=== PATIENT | female | born 1940 | race Caucasian/White ===

== ENCOUNTER 2016-05-13 05:52 | Inpatient (IN) | payer MEDICARE, OTHER ==
[2016-05-13] MEDS ORDERED: ceFAZolin SODIUM 1 GM VIAL IV PRN (06:00)
[2016-05-13] MEDS: RINGERS SOLUTION,LACTATED 1,000 ML IV PRN ×2 (06:15→10:15)
[2016-05-13] MEDS ORDERED: RINGERS SOLUTION,LACTATED 1,000 ML IV ONE ×2 (07:45→08:41)
[2016-05-13] MEDS: ROPIVACAINE HCL/PF 100 MG, EPINEPHrine 0.2 MG, KETOROLAC TROMETHAMINE 30 MG in NORMAL S... IJ PRN ×2 (08:41→09:18)
[2016-05-13] MEDS: TRANEXAMIC ACID 1,000 MG in NORMAL SALINE 100 ML IV PRN ×2 (08:41→09:18)
[2016-05-13] MEDS ORDERED: HYDROmorphone HCL 1 MG/ML DISP.SYRIN IV PRN (09:48)
[2016-05-13] MEDS ORDERED: MAG HYDROX/ALUMINUM HYD/SIMETH 30 ML UDC PO PRN (09:48)
[2016-05-13] MEDS ORDERED: ZOLPIDEM TARTRATE 5 MG TABLET PO PRN (09:48)
[2016-05-13] MEDS ORDERED: diphenhydrAMINE HCL 50 MG/ML VIAL IV PRN (09:48)
[2016-05-13] MEDS ORDERED: MAGNESIUM HYDROXIDE 30 ML UDC PO PRN (09:48)
[2016-05-13] MEDS ORDERED: ESTROGENS, CONJUGATED 30 APPL TUBE VG PRN (09:50)
--- NOTE | 2016-05-13 09:53 | OR ---
Operative Report - Dictated Report Narrative: Date: 05/13/2016 Preoperative diagnosis: Right hip degenerative joint disease. Postoperative diagnosis: Right hip degenerative joint disease. Procedure: Right Total hip arthroplasty. Surgeon: Fernando Baires M.D. Byproducts Pump Operator: Patel Serrano PA-C Anesthesia: Spinal and local periarticular joint injection. Complications: None Specimens: Bone for disposal. Estimated blood loss: 150 milliliters. Retained implants: Depuy [place] size 4 femoral stem standard offset. Size 52 millimeter ouside diameter 3-hole [place] Gription acetabular cup. 52 millimeter outside by 36 millimeter inside diameter highly cross-linked acetabular liner. 36 millimeter diameter -2 millimeter cobalt chromium femoral head. Cancellous 6.5mm screw 25 and 30 millimeter length Indications: Mrs. Appiah is a 75-year-old female who has had long-standing right hip pain. This patient was followed in my clinic for period of time with significant complaints of right hip pain consistent with arthritic changes. She failed conservative measures including but not limited to activity modification, passage of time, medications, and other conservative measures. Patient wished to proceed with surgical treatment. The risks, benefits, and alternatives were discussed in clinic. The risks of , blood clots, bleeding, infection, nerve/tendon blood vessel/ injury, malposition of components, dislocation and/or instability of joint, intraoperative fracture, postoperative limited range of motion, persistent pain, failure of components, and need for additional procedures. Patient wished to proceed. Consent was obtained after answering all questions. Procedure: After marking the correct extremity on the floor, the patient was taken to the operating room. A timeout was performed. IV antibiotics consisting of Ancef were administered prior to the procedure. A spinal anesthetic was induced by anesthesia. A Castaneda catheter was inserted. The patient was then transitioned to a lateral position on a well-padded pegboard. An axillary roll was placed. The head was in neutral position. The non- operative down leg was well-padded with SCD and DARSHAN hose in place. The arms were supported and padded to protect from any undue pressure on the bony prominences and nerves. A well-padded anterior and posterior pelvic and chest posts were secured in order to maintain a stable position of the pelvis. This was placed so that the pelvis was perpendicular to the floor. The body was in line with the pelvis. Once it was felt that we had protected all the bony prominences and the patient was well secured with a safety belt as well, the leg was pre-scrubbed with alcohol, prepped and draped in a standard sterile fashion. A standard anterior lateral hip incision was marked out over the greater trochanter. [place]an drapes were then placed. The skin incision was then made. Sharp dissection with a scalpel utilizing cautery for hemostasis was carried out down to the gluteus and iliotibial band fascia. This was split in line with the skin incision. The greater trochanter bursa was excised. The anterior and posterior margins of the abductor tendon were identified. The anterior 1/2-1/3 of the tendon was tagged and reflected off the greater trochanter leaving a sleeve of tendon for repair at the completion of the case. This exposed the underlying hip joint capsule. A limb length stitch was placed in the skin and referencedd off a claudy on the greater trochanter for evaluation of intraoperative limb lengths. An inverted T-type capsulotomy was made extending this up to the brim of the acetabulum. Using Homans to assist with elevation of the soft tissues off the anterior, superior, and inferior aspects of the femoral neck, the hip was then placed in a figure 4 position and the femoral head was dislocated. With the leg in an externally rotated and adducted position, the cutting flag was utilized in order to claudy for a standard femoral neck cut approximately a fingerbreadth above the level of the lesser trochanter. This was done with reference to pre-operative films and overall alignment. This was done while protecting the surrounding soft tissues with Homans. The femoral head was then removed and sized for guidance on preparation of the acetabulum. It was noted that there was loss of articular cartilage on both the femoral head and weightbearing portions of the acetabulum. We then returned the leg to the table and turned our attention to the acetabulum. While protecting the surrounding soft tissues, the labrum and remaining tissue in the fovea were excised using a scalpel and cautery. A series of reamers up to size 51 millimeter were utilized to prepare the acetabulum. The final reamer had good purchase and exposed the bleeding subchondral bone. The acetabulum was then thoroughly irrigated ensuring that all bony and cartilaginous materials were removed, and the final acetabular shell was impacted into place. This was placed in approximately 45 degrees of abduction and 20 degrees of anteversion utilizing the outrigger and body axis for alignment. This had a good press fit. 2 6.5mm cancellous screws were placed in the superior posterior quadrant of the acetabulum. The shell was then thoroughly irrigated and the final polyethylene was impacted into place ensuring that it seated completely. This was then protected with a sponge while we returned our attention to the femur. With the leg in a figure 4 position, utilizing Homans for soft tissue protection , a box cutting osteotome, followed by Charnley awl, followed by serial reamers and broaches were utilized in order to prepare the femur. It was found that a size 4 broach gave good axial and rotational stability. The proximal femur was visualized to ensure that there were no signs of fracture. A series of heads and necks were trialed. It was found that a standard neck and a -2mm femoral head gave good overall stability. There was minimal longitudinal instability. With the leg in the position of sleep, the femoral head was well covered. Hip range of motion was able to reach full extension and external rotation to greater than 75 degrees prior to impingement along the posterior acetabulum. The hip was able to be flexed to greater than 90 degrees with internal rotation greater than 60 degrees prior to anterior impingement. The limb lengths were near equal based on comparison to the contralateral side and the prior placed limb length stitch. At this point it was felt these were the appropriately sized femoral components as well as neck and femoral head. The trial implants were removed. The femur was thoroughly irrigated. The final implants were impacted into place, and the hip was reduced. After ensuring that there was no damage to the proximal femur , the standard periarticular joint injection of ropivacaine, Toradol, and epinephrine were injected into the joint capsule and surrounding soft tissues. Anesthesia then administered intravenous tranexamic acid. The capsule was repaired with a single interrupted #1 Vicryl. The abductor tendon was repaired to the greater trochanter utilizing #5 Ethibond through drill holes. This was oversewn with #1 Vicryl. The fascia was closed with interrupted #1 Vicryl. The wounds were thoroughly irrigated as we closed in layers. The deep and subcutaneous fat layers were closed with 0 and 3-0 Vicryl respectively. The subcutaneous tissue was closed with a running 3-0 Vicryl and the skin with geoffrey. All sponge, needle, blade, and instrument counts were correct prior to closing the wounds. Sterile dressings consisting of Xeroform, 4 x 4's, ABD, and tape were applied. The patient was awoken and transferred to her hospital bed and then to the postanesthesia care unit in stable condition. Postoperative condition: The plan is to admit to the medical/surgical inpatient floor postoperatively. There will be a projected 2 to 4 day hospital stay. Postoperatively 24 hours of IV antibiotics, pain control, physical therapy, occupational therapy, and medical comanagement will be utilized. Patient will be weightbearing as tolerated with anterior hip precautions. Postoperative films will be obtained in the recovery room.
[2016-05-13] MEDS: DEXTROSE 5%-LACTATED RINGERS 1,000 ML IV PRN ×2 (10:43→18:40)
[2016-05-13] MEDS: KETOROLAC TROMETHAMINE 15 MG/ML VIAL IV SCH ×3 (10:45→23:41)
[2016-05-13] MEDS: ceFAZolin SODIUM 1 GM in DEXTROSE 5 % IN WATER 100 ML IV SCH ×6 (10:48→23:42)
[2016-05-13] MEDS: ONDANSETRON HCL/PF 2 MG/ML VIAL IV PRN (12:50)
[2016-05-13] MEDS: PROMETHAZINE HCL 5 MG in DEXTROSE 5 % IN WATER 50 ML IV PRN ×2 (14:00)
[2016-05-13] MEDS: oxyCODONE HCL/ACETAMINOPHEN 1 TAB TABLET PO PRN (14:01)
[2016-05-13] MEDS: MORPHINE SULFATE 15 MG TABLET.SA PO SCH (20:39)
[2016-05-13] MEDS: SENNOSIDES/DOCUSATE SODIUM 1 TAB TABLET PO SCH (20:39)
[2016-05-14] MEDS: DEXTROSE 5%-LACTATED RINGERS 1,000 ML IV PRN ×3 (03:11→20:40)
[2016-05-14] MEDS: oxyCODONE HCL/ACETAMINOPHEN 1 TAB TABLET PO PRN ×3 (03:13→16:33)
[2016-05-14] MEDS: KETOROLAC TROMETHAMINE 15 MG/ML VIAL IV SCH ×4 (04:36→23:13)
[2016-05-14 06:11] LABS: Hematocrit 30.9 % (37.0-47.0); Hemoglobin 10.2 gm/dL (12.5-16.0); Mean Cell Volume 91.7 fl (78-100); Mean Corpuscular Hemoglobin 30.3 pg (27-31); Mean Platelet Volume 10.8 fl (6.0-9.5); Platelet Count 177 K/mm3 (150-450); Red Blood Count 3.37 M/mm3 (4.2-5.4); Red Cell Distribution Width 12.8 % (11.5-14.0); White Blood Count 9.6 K/mm3 (4.0-10.5)
[2016-05-14 06:22] LABS: Anion Gap 10.7 mmol/L (6.8-13.8); BUN/Creatinine Ratio 14.8 (9.0-21.6); Calcium * 8.1 mg/dL (7.9-10.9); Potassium 3.7 mmol/L (3.4-4.6)
[2016-05-14] MEDS: LEVOTHYROXINE SODIUM 50 MCG TABLET PO SCH (06:28)
--- NOTE | 2016-05-14 06:50 | PN ---
Subjective - Date and Time Seen Date: 05/14/16 Time: 06:43 Subjective Narrative: Denies any significant pain. Denies CP/SOB/N/V this am, but did have some N/V last pm. She's been up once with no complaint of light headedness. Castnaeda was removed just now. Objective - Review of Systems Generalized/Overall Review: Reports: No Symptoms Reported EENTM: Reports: No Symptoms Reported Respiratory: Reports: No Symptoms Reported Cardiac: Reports: No Symptoms Reported Abdominal: Reports: No Symptoms Reported Genitourinary Symptoms: Reports: No Symptoms Reported Musculoskeletal Complaints: Reports: Joint Pain Neurological: Reports: No Symptoms Reported Skin: Reports: No Symptoms Reported Endocrine: Reports: No Symptoms Reported - Vitals Vitals: Last Vital Signs Temp 36.8 C 05/14/16 05:54 Pulse 80 05/14/16 05:54 Resp 18 05/14/16 05:54 BP 115/56 05/14/16 05:54 Pulse Ox 99 05/14/16 05:54 - Abnormal Lab Findings Abnormal Lab Findings: Abnormal Lab Results 05/14/16 05/14/16 Range/Units 06:00 06:00 RBC 3.37 L (4.2-5.4) M/mm3 Hgb 10.2 L (12.5-16.0) gm/dL Hct 30.9 L (37.0-47.0) % MPV 10.8 H (6.0-9.5) fl Random Glucose 136 H (70-110) mg/dL - Exam Constitutional: Present: Alert, Oriented x3, Cooperative, No distress ENT Exam: Present: hearing grossly normal Neck: Present: supple Respiratory: Present: lungs clear, normal breath sounds, no respiratory distress , no accessory muscle use Cardiovascular/Chest: Present: regular rate, rhythm, no murmur Abdomen: Present: Normal bowel sounds, soft, nontender, nondistended, no rebound tenderness, no hepatospenomegaly Extremity: Present: no calf tenderness Skin Exam: Present: normal color Neurologic: Present: normal mood/affect, oriented x 3 Appearance: Present: appropriate appearance, appropriate insight, neat Eye contact: Present: cooperative, good eye contact, normal speech Thoughts: Present: normal thought pattern, no apparent hallucination Cauti Physician Documentation - Urinary Catheter Management Urethral (Castaneda) Urethral Indwelling: No Date of Insertion: 05/13/16 Time of Insertion: 08:00 Assessment/Plan - Problems/Diagnosis (1) Anemia Problem: Acute Qualifiers: Anemia type: other cause Other causes of anemia: other cause, not classified Qualified Code(s): D64.89 - Other specified anemias Narrative: Mild anemia - Hb 10 this am, 13 pre-op. No sx so will just follow for now. (2) Elevated BP without diagnosis of hypertension Problem: Acute Narrative: pre-op BP's were elevated, but have been fine here. will continue to monitor. (3) Insomnia Problem: Acute Qualifiers: Insomnia type: primary Qualified Code(s): F51.01 - Primary insomnia Narrative: continue zolpidem. doing well (4) Hypothyroid Problem: Acute Qualifiers: Hypothyroidism type: acquired Qualified Code(s): E03.9 - Hypothyroidism, unspecified Narrative: no med changes at this time. (5) Discharge planning issues Problem: Acute Narrative: pt. doing well. anticipate being able to discharge home when inpatient goals achieved per ortho.
--- NOTE | 2016-05-14 08:16 | PN ---
Subjective - Date and Time Seen Date: 05/14/16 Time: 08:13 Subjective Narrative: Subjective: Reports nausea. Was able to to the chair with therapy. Pain is well-controlled. Voiding without any complications. Tolerating by mouth intake. Denies vomiting. Denies calf pain. Slept well. Physical exam: Alert and oriented to person, place and time Right lower Extremity: Palpable dorsalis pedis pulse. Sensation grossly intact to light touch. Dressings trial. Able to flex and extend ankle and toes. No excessive drainage. Calf and thigh are soft and nontender. Assessment: Postop day 1 status post right total hip arthroplasty. Plan: Continue with physical and occupational therapy weightbearing as tolerated. Continue with anticoagulation. 24 hours postoperative prophylactic antibiotics. Pain control with goal to rely on oral medications. Continue bowel regimen. Will need 6 weeks with walker or assitive device to protect joint while ambulating during the recovery process. Discharge planning. Discontinue drain and Castaneda catheter. Repeat labs in a.m. if she continues of nausea with her pain medicines will likely alter her pain medicine but at this time we will wait and see if this is related to her surgical anesthesia. She was informed that there is no if she continues to have nausea Objective - Vitals Vitals: Last Vital Signs Temp 36.8 C 05/14/16 06:56 Pulse 80 05/14/16 06:56 Resp 18 05/14/16 06:56 BP 115/56 05/14/16 06:56 Pulse Ox 99 05/14/16 06:56 - Abnormal Lab Findings Abnormal Lab Findings: Abnormal Lab Results 05/14/16 05/14/16 Range/Units 06:00 06:00 RBC 3.37 L (4.2-5.4) M/mm3 Hgb 10.2 L (12.5-16.0) gm/dL Hct 30.9 L (37.0-47.0) % MPV 10.8 H (6.0-9.5) fl Random Glucose 136 H (70-110) mg/dL Cauti Physician Documentation - Urinary Catheter Management Urethral (Castaneda) Urethral Indwelling: No Date of Insertion: 05/13/16 Time of Insertion: 08:00 Assessment/Plan - Problems/Diagnosis (1) Acute blood loss anemia Problem: Acute (2) Elevated BP without diagnosis of hypertension Problem: Chronic (3) Hypothyroid Problem: Chronic Qualifiers: Hypothyroidism type: acquired Qualified Code(s): E03.9 - Hypothyroidism, unspecified (4) Insomnia Problem: Acute Qualifiers: Insomnia type: primary Qualified Code(s): F51.01 - Primary insomnia (5) Status post total hip replacement, right Problem: Acute
[2016-05-14] MEDS: CALCIUM CARBONATE/VITAMIN D3 1 TAB TABLET PO SCH (08:35)
[2016-05-14] MEDS: MORPHINE SULFATE 15 MG TABLET.SA PO SCH ×2 (08:35→20:38)
[2016-05-14] MEDS: ENOXAPARIN SODIUM 40 MG/0.4 ML SYRG SC SCH (08:35)
[2016-05-14] MEDS: MULTIVITAMINS 1 CAP CAPSULE PO SCH (08:35)
[2016-05-14] MEDS: ONDANSETRON HCL/PF 2 MG/ML VIAL IV PRN (08:36)
[2016-05-14] MEDS: PROMETHAZINE HCL 5 MG in DEXTROSE 5 % IN WATER 50 ML IV PRN ×2 (11:20)
[2016-05-14] MEDS: SENNOSIDES/DOCUSATE SODIUM 1 TAB TABLET PO SCH (20:38)
[2016-05-15] MEDS: DEXTROSE 5%-LACTATED RINGERS 1,000 ML IV PRN (04:37)
[2016-05-15] MEDS: KETOROLAC TROMETHAMINE 15 MG/ML VIAL IV SCH (04:38)
[2016-05-15 06:32] LABS: Hematocrit 29.5 % (37.0-47.0); Hemoglobin 9.8 gm/dL (12.5-16.0); Mean Cell Volume 91.9 fl (78-100); Mean Corpuscular Hemoglobin 30.5 pg (27-31); Mean Corpuscular Hgb Conc 33.2 g/dl (32-36); Mean Platelet Volume 11.3 fl (6.0-9.5); Platelet Count 171 K/mm3 (150-450); Red Blood Count 3.21 M/mm3 (4.2-5.4); Red Cell Distribution Width 12.7 % (11.5-14.0); White Blood Count 8.8 K/mm3 (4.0-10.5)
[2016-05-15] MEDS: LEVOTHYROXINE SODIUM 50 MCG TABLET PO SCH (06:34)
[2016-05-15 06:43] LABS: Anion Gap 7.3 mmol/L (6.8-13.8); BUN/Creatinine Ratio 14.6 (9.0-21.6); Calcium * 8.4 mg/dL (7.9-10.9); Carbon Dioxide 30.1 mmol/L (24-32.6); Estimated Creat Clear 76.5; Potassium 3.4 mmol/L (3.4-4.6)
--- NOTE | 2016-05-15 08:08 | PN ---
Subjective - Date and Time Seen Date: 05/15/16 Time: 08:04 Subjective Narrative: Denies any significant pain. Denies CP/SOB this am, but did have some N/V last pm and again this am. She's been up once with no complaint of light headedness. She does state her bowels are as regular as they usually are at home. Objective - Review of Systems Generalized/Overall Review: Reports: No Symptoms Reported EENTM: Reports: No Symptoms Reported Respiratory: Reports: No Symptoms Reported Cardiac: Reports: No Symptoms Reported Abdominal: Reports: No Symptoms Reported Genitourinary Symptoms: Reports: No Symptoms Reported Musculoskeletal Complaints: Reports: No Symptoms Reported Neurological: Reports: No Symptoms Reported Skin: Reports: No Symptoms Reported Endocrine: Reports: No Symptoms Reported - Vitals Vitals: Last Vital Signs Temp 35.6 C L 05/15/16 07:54 Pulse 72 05/15/16 07:35 Resp 18 05/15/16 07:35 BP 124/69 05/15/16 07:35 Pulse Ox 94 05/15/16 07:35 - Abnormal Lab Findings Abnormal Lab Findings: Abnormal Lab Results 05/15/16 05/15/16 Range/Units 06:04 06:04 RBC 3.21 L (4.2-5.4) M/mm3 Hgb 9.8 L (12.5-16.0) gm/dL Hct 29.5 L (37.0-47.0) % MPV 11.3 H (6.0-9.5) fl Est GFR (Non-Af Amer) 134 H (60-130) mL/min - Exam Constitutional: Present: Alert, Oriented x3, Cooperative, Mild distress ENT Exam: Present: hearing grossly normal Neck: Present: supple Respiratory: Present: lungs clear, normal breath sounds, no respiratory distress , no accessory muscle use Cardiovascular/Chest: Present: regular rate, rhythm, no murmur Abdomen: Present: Normal bowel sounds, soft, nontender, no rebound tenderness, no hepatospenomegaly Extremity: Present: no calf tenderness Skin Exam: Present: normal color Neurologic: Present: normal mood/affect, oriented x 3 Appearance: Present: appropriate appearance, appropriate insight, neat Eye contact: Present: cooperative, good eye contact, normal speech Thoughts: Present: normal thought pattern, no apparent hallucination Cauti Physician Documentation - Urinary Catheter Management Urethral (Castaneda) Urethral Indwelling: No Date of Insertion: 05/13/16 Time of Insertion: 08:00 Assessment/Plan - Problems/Diagnosis (1) Anemia Problem: Acute Qualifiers: Anemia type: other cause Other causes of anemia: other cause, not classified Qualified Code(s): D64.89 - Other specified anemias Narrative: Stable, 9.8 this am. no changes. (2) Elevated BP without diagnosis of hypertension Problem: Chronic (3) Insomnia Problem: Acute Qualifiers: Insomnia type: primary Qualified Code(s): F51.01 - Primary insomnia Narrative: no complaints. (4) Hypothyroid Problem: Chronic Qualifiers: Hypothyroidism type: acquired Qualified Code(s): E03.9 - Hypothyroidism, unspecified Narrative: stable no med changes. (5) Discharge planning issues Problem: Acute Narrative: Pt. is ready for discharge when inpatient goals are met. (6) Nausea Problem: Acute Narrative: probably due to pain meds. advised pt. to limit use and see how her pain does and her nausea. consider kenn.
[2016-05-15] MEDS: CALCIUM CARBONATE/VITAMIN D3 1 TAB TABLET PO SCH (08:39)
[2016-05-15] MEDS: MULTIVITAMINS 1 CAP CAPSULE PO SCH (08:39)
[2016-05-15] MEDS: MORPHINE SULFATE 15 MG TABLET.SA PO SCH ×2 (08:39→20:20)
[2016-05-15] MEDS: ENOXAPARIN SODIUM 40 MG/0.4 ML SYRG SC SCH (08:39)
--- NOTE | 2016-05-15 12:20 | PN ---
Subjective - Date and Time Seen Date: 05/15/16 Time: 12:18 Subjective Narrative: Subjective: Reports nausea continues but does not seem to be episodic with her pain meds. Was able to ambulate stairs with therapy. Pain is well-controlled however she noted increased pain with therapy today. Voiding without any complications. Tolerating by mouth intake. Denies calf pain. Slept well. Physical exam: Alert and oriented to person, place and time Right lower Extremity: Palpable dorsalis pedis pulse. Sensation grossly intact to light touch. Dressings trial. Able to flex and extend ankle and toes. No excessive drainage. Calf and thigh are soft and nontender. Assessment: Postop day 2 status post right total hip arthroplasty. Plan: Continue with physical and occupational therapy weightbearing as tolerated. Continue with anticoagulation. We again discussed that if she continues to have nausea she should have the nurse call to discuss changing pain medicines. It was noted that she had nausea yesterday and no call was made to ortho. Pain control with goal to rely on oral medications. Continue bowel regimen. Will need 6 weeks with walker or assitive device to protect joint while ambulating during the recovery process. Discharge planning. Objective - Vitals Vitals: Last Vital Signs Temp 35.6 C L 05/15/16 07:54 Pulse 72 05/15/16 07:35 Resp 18 05/15/16 07:35 BP 124/69 05/15/16 07:35 Pulse Ox 94 05/15/16 07:35 - Abnormal Lab Findings Abnormal Lab Findings: Abnormal Lab Results 05/15/16 05/15/16 Range/Units 06:04 06:04 RBC 3.21 L (4.2-5.4) M/mm3 Hgb 9.8 L (12.5-16.0) gm/dL Hct 29.5 L (37.0-47.0) % MPV 11.3 H (6.0-9.5) fl Est GFR (Non-Af Amer) 134 H (60-130) mL/min Cauti Physician Documentation - Urinary Catheter Management Urethral (Castaneda) Urethral Indwelling: No Date of Insertion: 05/13/16 Time of Insertion: 08:00 Assessment/Plan - Problems/Diagnosis (1) Acute blood loss anemia Problem: Acute (2) Elevated BP without diagnosis of hypertension Problem: Chronic (3) Hypothyroid Problem: Chronic Qualifiers: Hypothyroidism type: acquired Qualified Code(s): E03.9 - Hypothyroidism, unspecified (4) Insomnia Problem: Acute Qualifiers: Insomnia type: primary Qualified Code(s): F51.01 - Primary insomnia (5) Status post total hip replacement, right Problem: Acute
[2016-05-15] MEDS: ACETAMINOPHEN 500 MG TABLET PO PRN (14:04)
[2016-05-15] MEDS: SENNOSIDES/DOCUSATE SODIUM 1 TAB TABLET PO SCH (20:20)
[2016-05-16] MEDS: ACETAMINOPHEN 500 MG TABLET PO PRN (03:18)
[2016-05-16 06:34] VITALS: BP 136/61
[2016-05-16] MEDS: LEVOTHYROXINE SODIUM 50 MCG TABLET PO SCH (07:29)
--- NOTE | 2016-05-16 08:17 | DS ---
(1) Acute blood loss anemia Problem: Acute (2) Elevated BP without diagnosis of hypertension Problem: Chronic (3) Hypothyroid Problem: Chronic Qualifiers: Hypothyroidism type: acquired Qualified Code(s): E03.9 - Hypothyroidism, unspecified (4) Insomnia Problem: Acute Qualifiers: Insomnia type: primary Qualified Code(s): F51.01 - Primary insomnia (5) Status post total hip replacement, right Problem: Acute Description of Stay: Mrs. Appiah was admitted to the floor after undergoing right total hip arthroplasty. Tolerated this well. Was admitted to the floor postoperatively for 24 hours of IV antibiotics, pain control, medical comanagement, and occupational and physical therapy. OT and PT were consulted to assist with activities of daily living and ambulation. Was made weightbearing as tolerated with anterior hip precautions. Pain was initially controlled with IV regimen. This was transitioned to oral once tolerating a by mouth intake. She did have some nausea which improved prior to discharge with decreasing her narcotics. Was resumed on home diet and medications. Had a Castaneda catheter inserted and the operating room which was discontinued on postoperative day 1. Lovenox SCD and DARSHAN hose were utilized for DVT prophylaxis. Vital signs remained stable to the hospital course. Serial labs were obtained which showed a final hemoglobin of 9.8 grams. BMP was reviewed and was stable. Physical examination throughout the hospital course showed an extremity that had sensation that was intact to light touch, palpable pulses, a benign wound, motor intact to the toes, ankle, and knee. Once an oral pain regimen was tolerated and physical therapy goals were met, it was felt that they were stable for discharge to home. Instructions: Continue with weightbearing as tolerated and anterior hip precautions. Keep the wound clean and dry. Cover with dry gauze and tape. Change every 2-3 days as needed. Cover wound while showering. Continue with physical therapy. Resume home diet. Report any fever over 101.5 Fahrenheit, uncontrolled pain, increased drainage, foul odor of drainage, new or increased calf pain or shortness of breath, or any other significant complaints. A 325mg dialy aspirin will be started after finishing anticoagulation if not allergic. Continue with DARSHAN hose on the operative extremity until instructed otherwise. No driving until instructed otherwise. Follow up in approximately 10-14 days. Procedures Performed: see notes below List Procedures: Right total hip arthroplasty Discharge Disposition: Home self care Disposition: Home self-care Condition: Good Discharge Activity: Weight bearing, Other - anterior hip precautions Discharge Diet: General/regular food Alf Therapy: Physicial Therapy Referrals: John Max MD [Primary Care Provider] - Additional Patient Instructions (free text): Follow-up in the office with Dr. Baires on 05-28-16@10:45pm. Prescriptions (Any new or edited meds): Enoxaparin Sodium [Lovenox] 40 mg SC Q24H #7 disp.syrin Morphine Sulfate [Ms Contin] 15 mg PO Q12H #14 tablet.sa oxyCODONE HCL/ACETAMINOPHEN [Percocet 5 MG/325 MG] 2 tab PO Q4H PRN #60 tablet PRN Reason: Moderate Pain Complete Home Medications List: Complete Home Medication List: Calcium Carbonate/Vitamin D3 [Calcium 600-Vit D3 200 Tablet] 1 each PO DAILY 02/28 Estrogens, Conjugated [Premarin] 0.5 gm VG 2XW PRN 04/24/16 Levothyroxine Sodium [Synthroid] 50 mcg PO DAILY 04/24/16 Multivitamins [Multivitamin Carmine] 1 cap PO DAILY 04/24/16 Acetaminophen [Tylenol] 1,000 mg PO Q6H PRN #0 tablet 05/16/16 Enoxaparin Sodium [Lovenox] 40 mg SC Q24H #7 disp.syrin 05/16/16 Morphine Sulfate [Ms Contin] 15 mg PO Q12H #14 tablet.sa 05/16/16 Sennosides/Docusate Sodium [Senokot-S] 2 tab PO HS tablet 05/16/16 oxyCODONE HCL/ACETAMINOPHEN [Percocet 5 MG/325 MG] 2 tab PO Q4H PRN #60 tablet 05/16/16
[2016-05-16] MEDS: ENOXAPARIN SODIUM 40 MG/0.4 ML SYRG SC SCH (08:44)
[2016-05-16] MEDS: MORPHINE SULFATE 15 MG TABLET.SA PO SCH (08:48)
[2016-05-16] MEDS: CALCIUM CARBONATE/VITAMIN D3 1 TAB TABLET PO SCH (08:48)
[2016-05-16] MEDS: MULTIVITAMINS 1 CAP CAPSULE PO SCH (08:48)
== END 2016-05-16 12:45 | disposition home or self-care (01) | DRG 470 ==
LOC: MS 05:52
PROVIDERS: ADMIT Orthopaedic Surgery; ATTEND Orthopaedic Surgery
PROC: 0SR90JZ Replacement of Right Hip Joint with Synthetic Substitute, Open Approach (ICD-10-PCS; principal; 2016-05-13 08:00)
DX: M16.11 Unilateral primary osteoarthritis, right hip (principal); D62 Acute posthemorrhagic anemia; E03.9 Hypothyroidism, unspecified; F51.01 Primary insomnia; R03.0 Elevated blood-pressure reading, without diagnosis of hypertension

== ENCOUNTER 2018-04-20 10:20 | Inpatient (IN) | payer MEDICARE, OTHER ==
--- NOTE | 2018-04-08 09:26 | ANES ---
Anesthesia Pre Procedure Eval HOME MEDICATIONS Estrogens, Conjugated [Premarin] 0.5 gm VAGINAL 2XW PRN 04/24/16 [Last Taken Unknown] Multivitamins [Multivitamin Carmine] 1 cap PO DAILY 04/24/16 [Last Taken 05/12/16] Acetaminophen [Tylenol] 1,000 mg PO Q6H PRN #0 tab 05/16/16 [Last Taken Unknown] levothyroxine 75 mcg tablet 75 mcg PO DAILY #30 tab 12/31/17 [Last Taken Unknown] clobetasol 0.05 % topical cream 1 applic TP BID 02/23/18 [Last Taken Unknown] Allergies/Adverse Reactions: Allergies Allergy/AdvReac Type Severity Reaction Status Date / Time No Known Allergies Allergy Verified 04/08/18 07:53 - Planned Procedure Planned Procedure: Left Total Hip Arthroplasty Medication List Reviewed:: Yes Allergies Verified: Yes Medical History (Last Reviewed 04/08/18 @ 09:24 by Mj Guerin CRNA) Atrophic vaginitis Onset Date: 11/26/12 atrophic vaginitis- 02/24/13 post-menopausal atrophic vaginitis 11/26/12 Degenerative joint disease (DJD) of hip Onset Date: Unknown Dizziness Onset Date: 12/08/12 orthostatic, due to poor sleep from vaginal discomfort. Fatigue Onset Date: 12/08/12 secondary to sleep and vaginal pain. Consider 2 aleve hs if labs wnl. Hyperlipidemia Onset Date: 12/08/12 Hypothyroidism Onset Date: 07/29/16 Insomnia Onset Date: 12/08/12 secondary to pain. Left hip pain Onset Date: ~2015 Lichen sclerosus Onset Date: 12/30/12 Osteoarthritis Onset Date: 12/08/12 Vulvar lesion Onset Date: 11/26/12 Surgical History (Last Reviewed 04/08/18 @ 09:24 by Mj Guerin CRNA) History of carpal tunnel release of both wrists Onset Date: ~1989 History of colonoscopy Onset Date: Unknown X2. Pt thinks she had one approx 2 yrs ago and was told she would not need another one for 10 yrs. Both colonoscopies were neg. History of foot surgery Onset Date: ~1989 -Mela Anderson History of tonsillectomy Onset Date: 1945 History of total hip arthroplasty Onset Date: 05/13/16 right-Dr. Baires History of tubal ligation Onset Date: ~1969 Family History (Last Reviewed 04/08/18 @ 07:53 by Jenni Leigh RN) Father , age 62 Cerebral hemorrhage Mother Alzheimers disease Cancer melanoma Brother , x3 No problems noted. - Family Anesthesia History Family History:: no untoward family reactions to anesthesia, no familial bleeding tendencies, no family history of clotting disorders, no family history of premature - Airway/Neck/Teeth Within Normal Limits:: Yes Denture Type: Partial lower Neck Exam: full range of motion Mallampatti Score: 2 Thyromental (T-M) distance: > 6 cm Mandibulo Hyoid distance: > 3 cm - Respiratory Respiratory Physical: lungs clear Smoking Status: Never smoker Sleep Apnea currently treated: No Sleep Apnea by current assessment: No - Cardiovascular Tolerate Activity: Fair Heart Sounds: S1 & S2 - Anesthesia Assessment and Plan ASA Class: PS, II Anesthesia Type Plan: Spinal Planned difficult intubation/equipment available: No
[~2018-04-20 10:20] MED LIST: MORPHINE SULFATE 15 MG TABLET.SA PO PRN; ROPIVACAINE HCL/PF 100 MG, EPINEPHrine 0.2 MG, KETOROLAC TROMETHAMINE 30 MG in NORMAL S... IJ PRN; TRANEXAMIC ACID 1,000 MG in NORMAL SALINE 100 ML IV PRN; ceFAZolin SODIUM 1 GM VIAL IV PRN
[2018-04-20] MEDS: RINGER'S SOLUTION,LACTATED 1,000 ML IV PRN ×2 (10:59→13:16)
[2018-04-20] MEDS ORDERED: MAGNESIUM HYDROXIDE 30 ML UDC PO PRN (14:20)
[2018-04-20] MEDS ORDERED: diphenhydrAMINE HCL 50 MG/ML VIAL IV PRN (14:20)
[2018-04-20] MEDS ORDERED: MORPHINE SULFATE 2 MG/ML DISP.SYRIN IV PRN (14:20)
[2018-04-20] MEDS ORDERED: ZOLPIDEM TARTRATE 5 MG TABLET PO PRN (14:20)
[2018-04-20] MEDS ORDERED: MAG HYDROX/ALUMINUM HYD/SIMETH 30 ML UDC PO PRN (14:20)
[2018-04-20] MEDS ORDERED: ACETAMINOPHEN 500 MG TABLET PO PRN (14:20)
--- NOTE | 2018-04-20 14:29 | OR ---
Operative Report - Dictated Report Narrative: Date: 04/20/2018 Preoperative diagnosis: Left hip degenerative joint disease. Postoperative diagnosis: Left hip degenerative joint disease. Procedure: Left Total hip arthroplasty. Surgeon: Fernando Baires M.D. Heavy Equipment Mechanic: Patel Serrano PA-C (provided an essential set of skilled, educated and assisted with transfer, positioning, prepping, draping, manipulation, traction, irrigation, suturing, and placement of dressings all of which cannot be performed by the available surgical crew) Anesthesia: Spinal and local periarticular joint injection. Complications: None Specimens: Bone for disposal. Estimated blood loss: 250 milliliters. Retained implants: Depuy [place] size 4 femoral stem standard offset. Size 52 millimeter outside diameter 3-hole Rico Gription acetabular cup. 52 millimeter outside by 36 millimeter inside diameter highly cross-linked acetabular liner. 36 millimeter diameter +1.5 millimeter cobalt chromium femoral head. Cancellous 6.5mm screw 25 millimeter length Indications: Mrs. Appiah is a 77-year-old female who has had long-standing left hip pain and arthrosis. This patient was followed in my clinic for period of time with significant complaints of left hip pain consistent with arthritic changes. She failed conservative measures including but not limited to activity modification, passage of time, medications, and other conservative measures. Patient wished to proceed with surgical treatment. The risks, benefits, and alt ernatives were discussed in clinic. The risks of , blood clots, bleeding, infection, nerve/tendon blood vessel/ injury, malposition of components, dislocation and/or instability of joint, intraoperative fracture, postoperative limited range of motion, persistent pain, failure of components, and need for additional procedures. Patient wished to proceed. Consent was obtained after answering all questions. Procedure: After marking the correct extremity on the floor, the patient was taken to the operating room. A timeout was performed. IV antibiotics consisting of Ancef were administered prior to the procedure. A spinal anesthetic was induced by anesthesia. A Castaneda catheter was inserted. The patient was then transitioned to a lateral position on a well-padded pegboard. An axillary roll was placed. The head was in neutral position. The non- operative down leg was well-padded with SCD and DARSHAN hose in place. The arms were supported and padded to protect from any undue pressure on the bony prominences and nerves. A well-padded anterior and posterior pelvic and chest posts were secured in order to maintain a stable position of the pelvis. This was placed so that the pelvis was perpendicular to the floor. The body was in line with the pelvis. Once it was felt that we had protected all the bony prominences and the patient was well secured with a safety belt as well, the leg was pre-scrubbed with alcohol, prepped and draped in a standard sterile fashion. A standard anterior lateral hip incision was marked out over the greater trochanter. Ioban drapes were then placed. The skin incision was then made. Sharp dissection with a scalpel utilizing cautery for hemostasis was carried out down to the gluteus and iliotibial band fascia. This was split in line with the skin incision. The greater trochanter bursa was excised. The anterior and posterior margins of the abductor tendon were identified. The anterior 1/2-1/3 of the tendon was tagged and reflected off the greater trochanter leaving a sleeve of tendon for repair at the completion of the case. This exposed the underlying hip joint capsule. A limb length stitch was placed in the skin and referencedd off a claudy on the greater trochanter for evaluation of intraoperative limb lengths. An inverted T-type capsulotomy was made extending this up to the brim of the acetabulum. Using Homans to assist with elevation of the soft tissues off the anterior, superior, and inferior aspects of the femoral neck, the hip was then placed in a figure 4 position and the femoral head was dislocated. With the leg in an externally rotated and adducted position, the cutting flag was utilized in order to claudy for a standard femoral neck cut approximately a fingerbreadth above the level of the lesser trochanter. This was done with reference to pre-operative films and overall alignment. This was done while protecting the surrounding soft tissues with Homans. The femoral head was then removed and sized for guidance on preparation of the acetabulum. It was noted that there was loss of articular cartilage on both the femoral head and weightbearing portions of the acetabulum. We then returned the leg to the table and turned our attention to the acetabulum. While protecting the surrounding soft tissues, the labrum and remaining tissue in the fovea were excised using a scalpel and cautery. A series of reamers up to size 52 millimeter were utilized to prepare the acetabulum. The final reamer had good purchase and exposed the bleeding subchondral bone. The acetabulum was then thoroughly irrigated ensuring that all bony and cartilaginous materials were removed, and the final acetabular shell was impacted into place. This was placed in approximately 45 degrees of abduction and 20 degrees of anteversion utilizing the outrigger and body axis for alignment. This had a good press fit. 1 6.5mm cancellous screw was placed in the superior posterior quadrant of the acetabulum. The shell was then thoroughly irrigated and the final polyethylene was impacted into place ensuring that it seated completely. This was then protected with a sponge while we returned our attention to the femur. With the leg in a figure 4 position, utilizing Homans for soft tissue protection, a box cutting osteotome, followed by Charnley awl, followed by serial reamers and broaches were utilized in order to prepare the femur. It was found that a size 4 broach gave good axial and rotational stability. The calcar reamer was utilized in order to clean up the cut edges. The proximal femur was visualized to ensure that there were no signs of fracture. A series of heads and necks were trialed. It was found that a standard offset neck and a + 1.5 femoral head gave good overall stability. There was minimal longitudinal instability. With the leg in the position of sleep, the femoral head was well covered. Hip range of motion was able to reach full extension and external rotation to greater than 75 degrees prior to impingement along the posterior acetabulum. The hip was able to be flexed to greater than 90 degrees with internal rotation greater than 60 degrees prior to anterior impingement. The limb lengths were near equal based on comparison to the contralateral side and the prior placed limb length stitch. At this point it was felt these were the appropriately sized femoral components as well as neck and femoral head. The trial implants were removed. The femur was thoroughly irrigated. The final implants were impacted into place, and the hip was reduced. After ensuring that there was no damage to the proximal femur, the standard periarticular joint injection of ropivacaine, Toradol, and epinephrine were injected into the joint capsule and surrounding soft tissues. Anesthesia then administered intravenous tranexamic acid. The capsule was repaired with a single interrupted #1 Vicryl. The abductor tendon was repaired to the greater trochanter utilizing #5 Ethibond through drill holes. This was oversewn with #1 Vicryl. The fascia was closed with interrupted #1 Vicryl. The wounds were thoroughly irrigated as we closed in layers. The deep and subcutaneous fat layers were closed with 0 and 3-0 Vicryl respectively. The subcutaneous tissue was closed with a running 3-0 Vicryl and the skin geoffrey. All sponge, needle, blade, and instrument counts were correct prior to closing the wounds. Sterile dressings consisting of xeroform, 4 x 4's, and tape were applied. The patient was awoken and transferred to her hospital bed and then to the postanesthesia care unit in stable condition. Postoperative condition: The plan is to admit to the medical/surgical inpatient floor postoperatively. There will be a projected 1 to 3 day hospital stay. Postoperatively 24 hours of IV antibiotics, pain control, physical therapy, occupational therapy, and medical comanagement will be utilized. Patient will be weightbearing as tolerated with anterior hip precautions. Postoperative films will be obtained in the recovery room.
--- NOTE | 2018-04-20 14:36 | ANES ---
Post Anesthesia Discharge - Transfer of Care Transfer of Care handoff given to nurse: Yes - Discharge from PACU Discharge from PACU when meets criteria: Yes - Comfortable in PACU.
[2018-04-20] MEDS: DEXTROSE 5%-LACTATED RINGERS 1,000 ML IV PRN (15:14)
[2018-04-20] MEDS: KETOROLAC TROMETHAMINE 15 MG/ML VIAL IV SCH ×2 (15:15→20:40)
--- NOTE | 2018-04-20 15:28 | ANES ---
Post Anesthesia Assessment - Vital Signs Vitals: Last Vital Signs Temp 36.2 C 04/20/18 14:30 Pulse 71 04/20/18 14:55 Resp 17 04/20/18 14:55 BP 108/51 04/20/18 14:55 Pulse Ox 95 04/20/18 14:55 Airway Patency: Normal - Mental Status Level Of Consciousness: Awake, Alert - Pain Level Pain Score: 0 - N/V Assessment Nausea/Vomiting Presence: None Dehydration:: No
[2018-04-20] MEDS: oxyCODONE HCL/ACETAMINOPHEN 1 TAB TABLET PO PRN ×2 (16:38→20:47)
[2018-04-20] MEDS: ceFAZolin SODIUM 1 GM in DEXTROSE 5 % IN WATER 100 ML IV SCH ×4 (16:43→22:36)
[2018-04-20] MEDS: ONDANSETRON HCL/PF 2 MG/ML VIAL IV PRN ×2 (17:28→22:44)
[2018-04-20] MEDS: CLOBETASOL PROPIONATE 15 APPL TUBE TP SCH (20:40)
[2018-04-20] MEDS: SENNOSIDES/DOCUSATE SODIUM 1 TAB TABLET PO SCH (20:40)
[2018-04-21] MEDS: DEXTROSE 5%-LACTATED RINGERS 1,000 ML IV PRN ×3 (00:46→17:14)
[2018-04-21] MEDS: oxyCODONE HCL/ACETAMINOPHEN 1 TAB TABLET PO PRN ×2 (00:48→04:47)
[2018-04-21] MEDS: KETOROLAC TROMETHAMINE 15 MG/ML VIAL IV SCH ×4 (03:00→22:06)
[2018-04-21] MEDS: ceFAZolin SODIUM 1 GM in DEXTROSE 5 % IN WATER 100 ML IV SCH ×2 (04:33)
[2018-04-21] MEDS: ONDANSETRON HCL/PF 2 MG/ML VIAL IV PRN ×3 (04:46→14:38)
[2018-04-21 05:26] LABS: Hematocrit 29.4 % (37.0-47.0); Hemoglobin 9.9 gm/dL (12.5-16.0); Mean Cell Volume 92.2 fl (78-100); Mean Corpuscular Hgb Conc 33.7 g/dl (32-36); Mean Platelet Volume 10.8 fl (8-12.5); Platelet Count 200 K/mm3 (150-450); Red Blood Count 3.19 M/mm3 (4.2-5.4); Red Cell Distribution Width 12.4 % (11.5-14.0); White Blood Count 10.1 K/mm3 (4.0-10.5)
[2018-04-21 05:40] LABS: Anion Gap 9.7 mmol/L (6.8-13.8); BUN/Creatinine Ratio 11.9 (9.0-21.6); Calcium * 8.1 mg/dL (7.9-10.9); Estimated Creat Clear 60.3; Potassium 3.7 mmol/L (3.4-4.6)
[2018-04-21] MEDS: LEVOTHYROXINE SODIUM 75 MCG TABLET PO SCH (08:09)
[2018-04-21] MEDS: MULTIVITAMINS 1 CAP CAPSULE PO SCH (09:41)
[2018-04-21] MEDS: CLOBETASOL PROPIONATE 15 APPL TUBE TP SCH ×2 (09:41→22:06)
[2018-04-21] MEDS: HYDROcodone/ACETAMINOPHEN 1 EACH TABLET PO PRN ×2 (11:29→20:30)
[2018-04-21] MEDS: ENOXAPARIN SODIUM 40 MG/0.4 ML SYRG SC SCH (13:07)
[2018-04-21] MEDS: PROMETHAZINE HCL 25 MG TABLET PO PRN (16:39)
--- NOTE | 2018-04-21 17:16 | PN ---
Subjective - Date and Time Seen Date: 04/21/18 Time: 12:00 Subjective Narrative: Subjective: Reports noted nausea and intolerance to the pain medicines. Was able to walk in the room with therapy. Pain is tolerable but having difficulty due to nausea. Voiding without any complications. Tolerating by mouth intake. Denies calf pain. Physical exam: Alert and oriented to person, place and time Left lower extremity: Palpable dorsalis pedis pulse. Sensation grossly intact to light touch. Dressings clean and dry. Able to flex and extend ankle and toes. No excessive drainage. Calf and thigh are soft and nontender. Assessment: Postop day 1 status post left total hip arthroplasty. Plan: Due to the need for pain control and uncontrolled nausea, post-operative limited mobility, protection of the surgical site and joint, monitoring of the wound, and the management of chronic medical conditions, she requires continued inpatient care. Continue with physical and occupational therapy weightbearing as tolerated. Continue with anticoagulation. 24 hours postoperative prophylactic antibiotics. Pain control with goal to rely on oral medications - adjusted today and added additional antinausea medications. Continue bowel regimen. Will need 6 weeks with walker or assitive device to protect joint while ambulating during the recovery process. Discharge planning. Discontinue Castaneda catheter. Objective - Vitals Vitals: Last Vital Signs Temp 36.3 C 04/21/18 14:21 Pulse 69 04/21/18 14:21 Resp 18 04/21/18 14:21 BP 99/63 04/21/18 14:21 Pulse Ox 97 04/21/18 14:21 - Abnormal Lab Findings Abnormal Lab Findings: Abnormal Lab Results 04/21/18 04/21/18 Range/Units 05:00 05:00 RBC 3.19 L (4.2-5.4) M/mm3 Hgb 9.9 L (12.5-16.0) gm/dL Hct 29.4 L (37.0-47.0) % Sodium 131 L (132-142) mmol/L Random Glucose 168 H (70-110) mg/dL Cauti Physician Documentation - Urinary Catheter Management Urethral (Castaneda) Date of Insertion: 04/20/18 Time of Insertion: 12:50 Date of Removal: 04/21/18 Time of Removal: 07:54 Assessment/Plan - Problems/Diagnosis (1) Acute blood loss anemia Problem: Acute (2) Nausea Problem: Acute (3) Elevated BP without diagnosis of hypertension Problem: Chronic (4) Hypothyroid Problem: Chronic Qualifiers: (5) Status post total replacement of left hip Problem: Acute
[2018-04-21] MEDS: SENNOSIDES/DOCUSATE SODIUM 1 TAB TABLET PO SCH (22:06)
[2018-04-22] MEDS: DEXTROSE 5%-LACTATED RINGERS 1,000 ML IV PRN (01:30)
[2018-04-22] MEDS: KETOROLAC TROMETHAMINE 15 MG/ML VIAL IV SCH ×2 (03:27→09:59)
[2018-04-22] MEDS: LEVOTHYROXINE SODIUM 75 MCG TABLET PO SCH (07:47)
[2018-04-22] MEDS: PROMETHAZINE HCL 25 MG TABLET PO PRN ×2 (07:47→16:37)
[2018-04-22] MEDS: MULTIVITAMINS 1 CAP CAPSULE PO SCH (08:24)
[2018-04-22] MEDS: HYDROcodone/ACETAMINOPHEN 1 EACH TABLET PO PRN ×2 (08:24→16:37)
[2018-04-22] MEDS: CLOBETASOL PROPIONATE 15 APPL TUBE TP SCH (08:25)
[2018-04-22] MEDS: ENOXAPARIN SODIUM 40 MG/0.4 ML SYRG SC SCH (14:00)
--- NOTE | 2018-04-22 15:54 | DS ---
(1) Acute blood loss anemia Problem: Acute (2) Nausea Problem: Resolved (3) Elevated BP without diagnosis of hypertension Problem: Chronic (4) Hypothyroid Problem: Chronic Qualifiers: (5) Status post total replacement of left hip Problem: Acute Description of Stay: Mrs. Appiah was admitted to the floor after undergoing left total hip arthroplasty. Tolerated this well. Was admitted to the floor postoperatively for 24 hours of IV antibiotics, pain control, medical comanagement, and occupational and physical therapy. OT and PT were consulted to assist with activities of daily living and ambulation. Was made weightbearing as tolerated with anterior hip precautions. Pain was initially controlled with IV regimen. This was transitioned to oral once tolerating a by mouth intake. She did have some nausea which improved with changing her pain medication as well as additional oral antiemetics Was resumed on home diet and medications. Had a Castaneda catheter inserted and the operating room which was discontinued on postoperative day 1. Lovenox SCD and DARSHAN hose were utilized for DVT prophylaxis. Vital signs remained stable to the hospital course. Serial labs were obtained which showed a final hemoglobin of 9.9 grams. BMP was reviewed and was stable. Physical examination throughout the hospital course showed an extremity that had sensation that was intact to light touch, palpable pulses, a benign wound, motor intact to the toes, ankle, and knee. Once an oral pain regimen was tolerated and physical therapy goals were met, it was felt that they were stable for discharge to home. Instructions: Continue with weightbearing as tolerated and anterior hip precautions with no active abduction. Do not bathe or soak the wound. If there is any drainage from the wound keep the wound clean and dry and cover with dry gauze and tape. Change every 2-3 days as needed if there is any drainage. Cover wound while showering. Continue with physical therapy. Resume home diet. Report any fever over 101.5 Fahrenheit, uncontrolled pain, increased drainage, foul odor of drainage, new or increased calf pain or shortness of breath, or any other significant complaints. A 325mg dialy aspirin will be started after finishing anticoagulation if not allergic. Continue with DARSHAN hose on the operative extremity until instructed otherwise. No driving until instructed otherwise. Follow up in approximately 10-14 days. Procedures Performed: see notes below List Procedures: Left total hip arthroplasty Results and Findings: Lab Pending Results 04/21/18 05:00: WBC 10.1, RBC 3.19 L, Hgb 9.9 L, Hct 29.4 L, MCV 92.2, MCH 31.0, MCHC 33.7, RDW 12.4, Plt Count 200, MPV 10.8 04/21/18 05:00: Sodium 131 L, Plasma Sodium 132, Potassium 3.7, Chloride 98, Carbon Dioxide 27.0, Anion Gap 9.7, BUN 7 D, Creatinine 0.59, Est GFR (Non-Af Amer) 105, BUN/Creatinine Ratio 11.9, Random Glucose 168 H, Calcium 8.1 Discharge Location: Home Disposition: Home self-care Condition: Good Discharge Diet: General/regular food Referrals: John Max MD [Primary Care Provider] - Additional Patient Instructions (free text): Follow up outpatient Physical Therapy at [facility] rehab on ......... Follow up Dr Baires office appointment on Friday05/05/18 at 10:45am. Prescriptions (Any new or edited meds): Enoxaparin Sodium [Lovenox] 40 mg SC Q24H #7 disp.syrin HYDROcodone/ACETAMINOPHEN [[place] 5-325] 2 ea PO Q6H PRN #40 tab PRN Reason: Pain Promethazine HCl [Phenergan (Promethazine)] 25 mg PO Q6H PRN #30 tablet PRN Reason: Nausea Sennosides/Docusate Sodium [Senokot-S] 2 tab PO HS #60 tablet Complete Home Medications List: Complete Home Medication List: Estrogens, Conjugated [Premarin] 0.5 gm VAGINAL 2XW PRN 04/24/16 Multivitamins [Multivitamin Carmine] 1 cap PO DAILY 04/24/16 Acetaminophen [Tylenol] 1,000 mg PO Q6H PRN #0 tab 05/16/16 levothyroxine 75 mcg tablet 75 mcg PO DAILY #30 tab 12/31/17 clobetasol 0.05 % topical cream 1 applic TP BID 02/23/18 Enoxaparin Sodium [Lovenox] 40 mg SC Q24H #7 disp.syrin 04/22/18 HYDROcodone/ACETAMINOPHEN [S[place] 5-325] 2 ea PO Q6H PRN #40 tab 04/22/18 Promethazine HCl [Phenergan (Promethazine)] 25 mg PO Q6H PRN #30 tablet 04/22/18 Sennosides/Docusate Sodium [Senokot-S] 2 tab PO HS #60 tablet 04/22/18 Amb Orders for Discharge: PT Evaluation and Treatment* Facility: [facility], Location: Rehabilitation Services
[2018-04-23 14:38] VITALS: BP 122/71
== END 2018-04-22 17:51 | disposition home or self-care (01) | DRG 470 ==
LOC: MS 10:20
PROVIDERS: ADMIT Orthopaedic Surgery; ATTEND Orthopaedic Surgery
DX: R11.0 Nausea; R03.0 Elevated blood-pressure reading, without diagnosis of hypertension; M16.12 Unilateral primary osteoarthritis, left hip; Z96.641 Presence of right artificial hip joint; G47.00 Insomnia, unspecified; M19.90 Unspecified osteoarthritis, unspecified site; E03.9 Hypothyroidism, unspecified; D62 Acute posthemorrhagic anemia; E78.5 Hyperlipidemia, unspecified
CPT/HCPCS: 36415; 73502; 80048; 85027; 97116; 97161; 97165; 97530; 97535; J2405